=== PATIENT | female | born 1960 | race Caucasian/White ===

== ENCOUNTER → 2017-03-18 | Outpatient (CLI) | payer BC ==
[~2017-03-18] MED LIST: ASCO10003 PO; CHOL1000 PO; MULT-506 PO; VITAMIN D3 PO; [UNRECOGNIZED DRUG - OTHER] PO
--- NOTE | 2017-03-18 13:09 | MAMMOGRAPHY REPORT ---
BILATERAL DIGITAL SCREENING MAMMOGRAM TOMOSYNTHESIS WITH CAD: 03/18/2017 CLINICAL HISTORY: Routine screening. TECHNIQUE: Breast tomosynthesis in addition to standard 2D mammography was performed. Current study was also evaluated with a Computer Aided Detection (CAD) system. COMPARISON: Comparison is made to exams dated: 03/14/2016 mammogram, 03/10/2015 mammogram, 03/25/2014 m ammogram, 09/14/2013 mammogram, 09/09/2013 mammogram, and 08/01/2012 mammogram - [facility] nter. BREAST COMPOSITION: There are scattered areas of fibroglandular density in both breasts. FINDINGS: Decreasing size of a benign partially rim calcified mass in the right upper outer quadrant. Stable metallic biopsy marker in the right breast. A few other scattered stable benign-appearing c alcifications bilaterally. No suspicious mass, architectural distortion or cluster of suspicious jennifer rocalcifications is seen. IMPRESSION: ACR BI-RADS CATEGORY 1: NEGATIVE There is no mammographic evidence of malignancy. A 1 year screening mammogram is recommended. The pa tient will receive written notification of the results. Approximately 10% of breast cancers are not detected with mammography. A negative mammographic report should not delay biopsy if a clinically suggestive mass is present. Mare Alan M.D. ay/:03/18/2017 08:06:52 Paint Prep Technician: Ludmila COBB(Kathryn)(M), [facility] letter sent: Normal 1/2 BI-RADS Code: ACR BI-RADS Category 1: Negative
== END | disposition home or self-care (01) ==
LOC: C.MAMM 07:13
PROVIDERS: ATTEND Family Medicine
DX: Z12.31 Encounter for screening mammogram for malignant neoplasm of breast (principal)

== ENCOUNTER 2017-04-06 10:55 | Emergency (ER) | payer BC ==
[~2017-04-06] VITALS: Ht 160 cm; Wt 71.3 kg
[~2017-04-06 10:55] MED LIST changes: -CHOL1000 PO
[2017-04-06 11:05] VITALS: TEMP 36.9; Ht 160 cm; Wt 71.3 kg
[2017-04-06] MEDS ORDERED: CHOL1000 PO (11:40)
--- NOTE | 2017-04-06 11:46 | DIAGNOSTIC IMAGING REPORT ---
L FINGER(S) MIN 2 VIEWS ROUTINE HISTORY: 57 years-old Female FALL acute left fifth digit pain status post fall COMPARISON: None available TECHNIQUE: 3 views of the fingers with attention to the left fifth digit FINDINGS: There is an acute subluxation of the fifth proximal interphalangeal joint with the middle phalanx displaced 3 mm ulnarly and positioned with 70 degrees apex radial angulation.There is 3 mm volar subluxation. Moderate associated soft tissue swelling without definite fracture. Moderate interphalangeal degenerative changes are seen throughout. Background osteopenia. Lucency overlying the proximal shaft of the fourth metacarpal is favored to be artifact. IMPRESSION: Acute angulated and subluxation of the fifth proximal phalangeal joint as above without definite fracture identified. Follow-up radiographs following reduction recommended. The above report was generated using voice recognition software. It may contain grammatical, syntax or spelling errors. Electronically signed by: Jefferson Llamas M.D. 04/06/2017 11:45 AM Dictated Date/Time: 04/06/2017 11:42 AM
[2017-04-06] MEDS ORDERED: XYLOCAINE 1%/SOD BICARB 20 ML VIAL INFIL ONE (12:00)
--- NOTE | 2017-04-06 12:39 | DIAGNOSTIC IMAGING REPORT ---
L FINGER(S) MIN 2 VIEWS ROUTINE HISTORY: 57 years-old Female post reduction L little finger status post reduction of left fifth digit subluxation COMPARISON: Left finger radiographs of same day at 11:35 AM TECHNIQUE: 3 views of the left fifth digit FINDINGS: There is been interval reduction of the previous described angulated subluxation involving the fifth PIP joint. There is improved alignment with out associated fracture identified. Moderate soft tissue swelling is noted about the fifth digit. Moderate interphalangeal degenerative changes redemonstrated with mild background osteopenia. IMPRESSION: Status post reduction of the fifth PIP joint with anatomic alignment. No fracture identified. The above report was generated using voice recognition software. It may contain grammatical, syntax or spelling errors. Electronically signed by: Jefferson Llamas M.D. 04/06/2017 12:37 PM Dictated Date/Time: 04/06/2017 12:36 PM
[2017-04-06 13:03] VITALS: BP 125/80; PULSE 87; O2SAT 100
--- NOTE | 2017-04-06 17:36 | EMERGENCY ROOM VISIT NOTE ---
ED Visit Note First contact with patient: 11:24 CHIEF COMPLAINT: Left little Finger pain and deformity HISTORY OF PRESENT ILLNESS: This 57-year-old white female patient injured the left little finger today when she tripped on the stairs and caught her left hand on the bottom of the hand rail. She Has been unable to move it at the PIP joint since and there is moderate and constant pain. No numbness or tingling. no other fingers are involved. No recent history of finger dislocation. Pain is 6/10. No treatment yet. REVIEW OF SYSTEMS: Head: No headache, injury or neck pain. Neck: No pain, stiffness, or swelling. Cardiac: No chest pain, diaphoresis, dyspnea on exertion, orthopnea, pedal edema, or palpitations. Skin: No rash, new lesions , or masses. General: No fever or chills, fatigue, loss of appetite, or significant recent weight gain or loss. PMH: Benign Previous Surgeries: Dewey tooth extraction Medications: Vitamins Allergies: Erythromycin Family History: Significant for dementia. Mother is . SOCIAL HISTORY: Patient living at home alone. Employed. No tobacco use, occasional EtOH use. PHYSICAL EXAM: Vital Signs: Afebrile. Reviewed and filed in patient's chart General: Well-developed, well-nourished, middle-aged white female, in no acute distress. Sitting on a bed. Alert and oriented. Obvious discomfort. Skin: Warm and dry with good turgor. No rashes. Small abrasion present over the dorsum of her little finger. No laceration. Mild edema has developed at the proximal phalanx. No ecchymosis. Musculoskeletal: There is an obvious deformity at the PIP joint of the little finger with dorsal dislocation of the middle phalanx. Neurologic: The distal dislocated portion of the finger is pale but is sensate. Capillary refill is normal. EMERGENCY DEPARTMENT COURSE: An X-ray of the finger shows a complete dorsal dislocation at the PIP joint. No fractures are seen. Patient elected to have local anesthesia. Digital block was performed using 4ml 1% buffered Lidocaine. The joint was reduced by applying a steady axial distraction of the dislocated portion at the PIP joint with hyperextention. Following this motion of the joint was reduced and the patient could move it normally. FDS and FDP function were checked individually and found to be intact. She has full extension. Vascular status was checked and found to be equal to the other digits. Post- reduction X-ray shows reduction of the joint without fracture. DIAGNOSIS: Left little finger PIP joint dislocation DISCHARGE INSTRUCTIONS & TREATMENT: Patient was educated regarding today's findings. Conservative care measures were discussed. Keep the finger noe taped to the next finger for about 3 weeks. Ice and elevation for 72 hours. Ibuprofen 600 mg and Tylenol 1 gm every 6 hours as needed for pain. Gentle motion daily. Motion was checked several times to be sure that it would not re- dislocate. It was stable. Importance of gentle motion every day was discussed. She should be out of the noe tape for showering. Finger dislocation handout was provided. Return to the ED for any other concerns. Current/Historical Medications Scheduled Ascorbic Acid (Vitamin C), 1 TAB PO QAM Cholecalciferol (Vitamin D3), 5,000 UNITS PO DAILY Multivitamin (Multivitamin), 1 TAB PO QAM Allergies Coded Allergies: Erythromycin (Verified Allergy, Unknown, UNKNOWN, 04/06/17) Vital Signs Date Time Temp Pulse Resp B/P (MAP) Pulse Ox O2 Delivery O2 Flow Rate FiO2 04/06/17 13:03 87 18 125/80 100 04/06/17 13:00 87 18 125/80 100 Room Air 04/06/17 11:05 36.9 105 18 142/85 96 Room Air Departure Information Impression Primary Impression: Dislocation of left little finger Dispostion Home / Self-Care Condition GOOD Forms WORK / SCHOOL INSTRUCTIONS, HOME CARE DOCUMENTATION FORM, MOTRIN USE, TYLENOL USE, IMPORTANT VISIT INFORMATION Patient Instructions [facility], ED Dislocation Finger Redu Additional Instructions Keep the fingers noe taped at all times other than bathing for the next 4 weeks Gentle motion daily Ice and elevate intermittently as needed for pain/swelling Tylenol and Motrin every 6 hours as needed for discomfort Follow-up with orthopedics if pain is persisting Return to the ED for any acute changes
== END 2017-04-06 13:04 | disposition home or self-care (01) ==
LOC: C.EDB 10:57 → C.EDD 13:04
DX: S63.287A Dislocation of proximal interphalangeal joint of left little finger, initial encounter (principal); W18.40XA Slipping, tripping and stumbling without falling, unspecified, initial encounter; S60.417A Abrasion of left little finger, initial encounter; Z81.8 Family history of other mental and behavioral disorders

== ENCOUNTER 2020-01-16 08:58 | Inpatient (IN) ==
[2020-01-16] MEDS ORDERED: VANCOMYCIN HCL 1,250 MG in SODIUM CHLORIDE 0.9% 500 ML IV ONE (09:38)
[2020-01-16] MEDS ORDERED: PIPERACILL/TAZOBAC CONSULT ACTIVE PRN ×2 (09:38→17:04)
[2020-01-16] MEDS ORDERED: VANCOMYCIN CONSULT ACTIVE PRN ×2 (09:38→17:04)
[2020-01-16] MEDS ORDERED: SODIUM CHLORIDE 0.9% 1000ML 1,000 ML IV ONE (09:38)
[2020-01-16] MEDS ORDERED: PIPERACILLIN/TAZOBACTAM 4.5 GM/120 ML BAG IV ONE (09:38)
[2020-01-16] MEDS ORDERED: ALBUT/IPRATROP 3MG/0.5MG NEB 3 ML VIAL NEB STA (09:40)
[2020-01-16] MEDS ORDERED: DEXAMETHASONE **PF** INJ 10 MG/ML VIAL IV ONE (09:40)
[2020-01-16] MEDS ORDERED: guaiFENesin 600 MG TABCR PO STA (09:40)
[2020-01-16 10:00] LABS: Basophils # (auto) 0.02 K/uL (0-0.2); Basophils % (auto) 0.3 %; Eosinophils # (auto) 0.03 K/uL (0-0.5); Eosinophils % (auto) 0.4 %; Hematocrit (blood only) 30.4 % (37-47); Hemoglobin 10.2 g/dL (12.0-16.0); Immature Granulocytes # (auto) 0.02 K/uL (0.00-0.02); Immature Granulocytes % (auto) 0.3 %; Lymphocytes # (auto) 0.73 K/uL (1.2-3.4); Lymphocytes % (auto) 9.4 %; Mean Corpuscular Hgb Conc 33.6 g/dL (32-36); Mean Corpuscular Volume 98.4 fL (80-100); Mean Platelet Volume 8.9 fL (7.4-10.4); Monocytes # (auto) 0.75 K/uL (0.11-0.59); Monocytes % (auto) 9.7 %; Neutrophils # (auto) 6.22 K/uL (1.4-6.5); Neutrophils % (auto) 79.9 %; Platelet Count 308 K/uL (130-400); RDW Coefficient of Variation 13.2 % (11.5-14.5); RDW Standard Deviation 47.4 fL (36.4-46.3); Red Blood Count 3.09 M/uL (4.2-5.4); White Blood Count 7.77 K/uL (4.8-10.8)
--- NOTE | 2020-01-16 10:05 | XRay Report ---
XR chest 1V portable CLINICAL HISTORY: Sepsis. COMPARISON STUDY: Chest radiograph August 03, 2019. FINDINGS: Right internal jugular [id number]-Ozmn is in place. No pneumothorax or pleural effusion is no ez. There are mild bibasilar opacities. Cardiac size is normal. There is no evidence for pulmonary e karin. IMPRESSION: Mild bibasilar opacities which may reflect an infectious etiology or atelectasis. ACT 112: Negative or not required by law. Electronically signed by: Emigdio Llanos M.D. 01/16/2020 10:04 AM
[2020-01-16 10:09] LABS: Partial Thromboplastin Time 28.8 Seconds (21.0-31.0); Prothrombin Time 10.9 Seconds (9.0-12.0)
[2020-01-16 10:18] LABS: Alanine Aminotransferase 17 U/L (12-78); Albumin Level 3.2 gm/dl (3.4-5.0); Aspartate Aminotransferase 12 U/L (15-37); BUN Creatinine Ratio 19.9 (10-20); Bilirubin Direct < 0.1 mg/dl (0-0.2); Blood Urea Nitrogen 17 mg/dl (7-18); Calcium 9.1 mg/dl (8.5-10.1); Carbon Dioxide 24 mmol/L (21-32); Chloride 108 mmol/L (98-107); Creatinine Clr Calc Pharmacy 59.9 ml/min; Est GFR (African American) 84.5; Est GFR (Non-African American) 72.9; Glucose 126 mg/dl (70-99); Lipase 95 U/L (73-393); Magnesium 1.7 mg/dl (1.8-2.4); Potassium 3.8 mmol/L (3.5-5.1); Sodium 138 mmol/L (136-145)
[2020-01-16 10:27] LABS: Albumin Globulin Ratio 0.9 (0.9-2); Alkaline Phosphatase 79 U/L (45-117); Bilirubin,Total 0.3 mg/dl (0.2-1); Globulin 3.7 gm/dl (2.5-4.0); Total Protein 6.9 gm/dl (6.4-8.2); Troponin I 0.372 ng/ml (0-0.045)
[2020-01-16] MEDS ORDERED: OPTIRAY 320 125ml IV PRN (10:46)
[2020-01-16 11:33] LABS: Appearance Urine Clear (Clear); Bilirubin Urine Negative (Negative); Blood Urine Negative (Negative); Color Urine Yellow; Glucose Urine UA Negative (Negative); Ketones Urine Negative (Negative); Leukocyte Esterase Urine Negative (Negative); Nitrite Urine Negative (Negative); Protein Urine Negative (Negative); Urobilinogen Urine Negative (Negative); pH Urine 6.5 (4.5-7.5)
--- NOTE | 2020-01-16 12:17 | CT Scan Report ---
CT ANGIOGRAPHY OF THE CHEST, PULMONARY EMBOLUS PROTOCOL CLINICAL HISTORY: Chest pain. Evaluate for pulmonary embolus. COMPARISON STUDY: Chest CT May 04, 2019. Chest radiograph performed earlier today. TECHNIQUE: Following IV administration of 118 mL of Optiray-320, helical axial images of the chest we re obtained utilizing the pulmonary embolus protocol. Maximal intensity projections and sagittal and coronal reformats were viewed on an independent 3D workstation. IV contrast was administered withou t complication. Automated exposure control was utilized for the study. A dose lowering technique wa s utilized adhering to the principles of ALARA. CT DOSE: 238.11 mGy.cm FINDINGS: No pulmonary emboli are identified. There is no thoracic aortic dissection. The size of th e heart is normal. A right-sided Aoehpl-m-Sini is in place. The central airways are patent. There is no thoracic lymphadenopathy. There is no consolidation. There are are mild groundglass opacities with mosaic attenuation within the lungs. No pneumothorax or pleural effusion is noted. Bony thorax and u pper abdomen are unremarkable. IMPRESSION: 1. No pulmonary emboli identified. 2. No thoracic aortic dissection. 3. Mild groundglass opacities with mosaic attenuation within the lungs. The findings could reflect at electasis or air-trapping. Pulmonary edema could appear similar although is considered less likely. N o consolidation. ACT 112: Negative or not required by law. Electronically signed by: Emigdio Llanos M.D. 01/16/2020 12:16 PM
--- NOTE | 2020-01-16 12:49 | Emergency Department Note ---
Impression & Plan Sepsis, Hypomagnesemia, Hypophosphatemia, Elevated troponin, B-cell lymphoma ED Provider Note NAME: WENDY GALEAS AGE: 59 SEX: F ARRIVES VIA: Walk-In INFORMANT: [Patient], ED PROVIDER(S): Michael Moreno MD CHIEF COMPLAINT: Fever, cough, shortness of breath. PLAN: Disposition: Admit MEDICAL DECISION MAKING: The patient is a pleasant 59-year-old woman with a past medical history of B- cell lymphoma who presents emergency department with cough and shortness of breath that has been worsening in the setting of having mild residual symptoms over the past month which were thought to be related to her chemotherapy with her last treatment at the beginning of November with subsequent plan for continued maintenance therapy. She reports semi-productive cough and sob. Denies chest pain, vomiting, diarrhea, urinary sx. Denies known contact with individuals diagnosed with Covid19. She follows with [facility], Dr. Bhatt. On arrival the patient has a temperature of 37.9 with heart rate in the 140s and vital signs otherwise stable. She has scant intermittent wheezes but is otherwise clear. WBC, platelets within normal limits. H/H 10.2/30.0 similar to prior injury values. Chemistry without acidosis. Magnesium 1.7 with phosphorus 2.0 with repletion provided. LFTs unremarkable. Patient's troponin is elevated at 0.372.prior similar elevations in the record. UA negative for infection. Patient was treated with empiric antibiotics given immunocompromise on and on chemotherapy. CTA was negative for PE or focal infiltrates though with mild groundglass opacities within the lungs. Patient was reevaluated and she was fe eling improved after IV fluid hydration, dexamethasone, duoneb, and antibiotics. She was agreeable with plan for admission after making arrangements to take care of her elderly father. Case was discussed with Adelia Tello, [facility], who evaluate the patient for admission. Triage Nursing notes reviewed and agree them. Prior medical records reviewed Vital Signs: reviewed and remarkable for tachycardia. Differential diagnosis: Sepsis, UTI, pneumonia, metabolic, electrolyte abnormalities, cardiac sources, intracerebral event, toxicologic, neurologic, as well as other pathologies. ER treatment provided: See below. Diagnostics interpreted by me: ECG: Sinus tachycardia, 141 bpm, normal axis, no ectopy, no overt ST elevation or depression, QTC 459, QRS 74. Cardiac Monitoring: An order for continuous cardiac monitoring was placed and demonstrated sinus tachycardia, 141 bpm, no ectopy, Laboratory studies: See below Imaging studies: XR chest 1V portable CLINICAL HISTORY: Sepsis. COMPARISON STUDY: Chest radiograph August 03, 2019. FINDINGS: Right internal jugular Qhaiag-l-Eooi is in place. No pneumothorax or pleural effusion is noted. There are mild bibasilar opacities. Cardiac size is normal. There is no evidence for pulmonary edema. IMPRESSION: Mild bibasilar opacities which may reflect an infectious etiology or atelectasis. -- CT ANGIOGRAPHY OF THE CHEST, PULMONARY EMBOLUS PROTOCOL CLINICAL HISTORY: Chest pain. Evaluate for pulmonary embolus. COMPARISON STUDY: Chest CT May 04, 2019. Chest radiograph performed earlier today. TECHNIQUE: Following IV administration of 118 mL of Optiray-320, helical axial images of the chest were obtained utilizing the pulmonary embolus protocol. Maximal intensity projections and sagittal and coronal reformats were viewed on an independent 3D workstation. IV contrast was administered without compl ication. Automated exposure control was utilized for the study. A dose lowering technique was utilized adhering to the principles of ALARA. CT DOSE: 238.11 mGy.cm FINDINGS: No pulmonary emboli are identified. There is no thoracic aortic dissection. The size of the heart is normal. A right-sided Ucegfg-w-Novu is in place. The central airways are patent. There is no thoracic lymphadenopathy. There is no consolidation. There are are mild groundglass opacities with mosaic attenuation within the lungs. No pneumothorax or pleural effusion is noted. Bony thorax and upper abdomen are unremarkable. IMPRESSION: 1. No pulmonary emboli identified. 2. No thoracic aortic dissection. 3. Mild groundglass opacities with mosaic attenuation within the lungs. The findings could reflect atelectasis or air-trapping. Pulmonary edema could appear similar although is considered less likely. No consolidation. Consultation(s): [facility]. HPI: The patient is a pleasant 59-year-old woman with a past medical history of B-cell lymphoma who presents emergency department with cough and shortness of breath that has been worsening in the setting of having mild residual symptoms over the past month which were thought to be related to her chemotherapy with her last treatment at the beginning of November with subsequent plan for continued maintenance therapy. She reports semi-productive cough and sob. Denies chest pain, vomiting, diarrhea, urinary sx. Denies known contact with individuals diagnosed with Covid19. She follows with [facility] oncology, Dr. Bhatt. ROS: See above HPI for pertinent positives & negatives. A total of 10 systems reviewed and were otherwise negative. PAST MEDICAL HISTORY:See Below PAST SURGICAL HISTORY:See Below FAMILY HISTORY:See Below SOCIAL HISTORY:See Below HOME MEDICATIONS:See Below ALLERGIES:See Below VITALS:See Below PHYSICAL EXAMINATION: GENERAL: Awake, alert, acute on chronically ill-appearing, in no distress HENT: Normocephalic, atraumatic. Oropharynx with dry mucous membranes and otherwise unremarkable. EYES: Normal conjunctiva. Sclera non-icteric. NECK: Supple. No nuchal rigidity. FROM. No JVD. RESPIRATORY: Scant intermittent wheezes and otherwise clear to auscultation. CARDIAC: Tachycardic rate, normal rhythm. Extremities warm and well perfused. Pulses equal. ABDOMEN: Soft, non-distended. No tenderness to palpation. No rebound or guarding. No masses. RECTAL: Deferred. MUSCULOSKELETAL: Chest examination reveals no tenderness. The back is symmetrical on inspection without obvious abnormality. There is no CVA tenderness to palpation. No joint edema. LOWER EXTREMITIES: Calves are equal size bilaterally and non-tender. No edema. No discoloration. NEURO: Normal sensorium. No sensory or motor deficits noted. SKIN: No rash or jaundice noted. ED COURSE: Critical Care: I have personally spent greater than 45 minutes of critical care time in the direct management of this patient. This includes bedside care, interpretation of diagnostic studies, and testing, discussion with consultants, patient, and family members, and other required patient management activities. This 45 minutes is in excess of all separately billable procedures. 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 Other Information That Helps Us Care for You: No Feels Safe at Home: Yes Safety Concerns: Feels Safe At This Time Smoking Status: Never smoker Second Hand Exposure: Yes ( A CHILD) ; Hx Alcohol Use: No Hx Substance Use: No Allergies Allergies Allergy/AdvReac Type Severity Reaction Status Date / Time latex Allergy Unknown pruritus Verified 01/16/20 09:54 (with prolonged exposure) erythromycin base AdvReac Unknown nausea Verified 01/16/20 09:54 Home Meds Home Medications Medication Instructions Recorded Confirmed lorazepam 0.5 mg PO HS PRN 05/21/19 01/16/20 acyclovir 400 mg PO BID 09/26/19 01/16/20 omeprazole 20 mg PO QAM 09/26/19 01/16/20 ondansetron HCl 8 mg PO Q8H PRN 09/26/19 01/16/20 prochlorperazine maleate 10 mg PO Q6H PRN 09/26/19 01/16/20 Results & Data (ED) Vital Signs Vital Signs - 24 hr 01/16/20 09:03 01/16/20 10:35 01/16/20 11:02 Temperature 37.9 C H Temperature Source Oral Pulse Rate 152 H Pulse Rate [Right] 129 H 123 H Pulse Rhythm [Right] Regular Pulse Strength [Right] Normal Respiratory Rate 20 20 18 Respiratory Effort / Characteristics Non-Labored Non-Labored Spontaneous Non-Labored Spontaneous Respiratory Depth Normal Normal Respiratory Pattern Regular Blood Pressure 125/75 Blood Pressure [Left Arm] 139/77 Blood Pressure Mean 91 Blood Pressure Mean [Left Arm] 97 Blood Pressure Position [Left Arm] Lying Pulse Oximetry 96 95 96 Oxygen Delivery Method Room Air Room Air Room Air Sepsis Recent Fever Within 48 Hours Yes Sepsis New/Unexplained Change in Mental Status N/A Sepsis Action Taken by Nursing No Action Required 01/16/20 11:37 01/16/20 12:59 Temperature Temperature Source Pulse Rate Pulse Rate [Right] 126 H 118 H Pulse Rhythm [Right] Regular Regular Pulse Strength [Right] Normal Normal Respiratory Rate 16 18 Respiratory Effort / Characteristics Non-Labored Spontaneous Non-Labored Spontaneous Respiratory Depth Normal Normal Respiratory Pattern Regular Blood Pressure Blood Pressure [Left Arm] 129/76 132/80 Blood Pressure Mean Blood Pressure Mean [Left Arm] 93 97 Blood Pressure Position [Left Arm] Lying Lying Pulse Oximetry 97 98 Oxygen Delivery Method Room Air Room Air Sepsis Recent Fever Within 48 Hours Sepsis New/Unexplained Change in Mental Status Sepsis Action Taken by Nursing Laboratory Data Attestation: I reviewed the patient's lab results. Result diagrams: 01/16/20 09:48 01/16/20 09:48 Lab Results 01/16/20 01/16/20 01/16/20 Range/Units 09:48 09:48 09:48 WBC 7.77 (4.8-10.8) K/uL RBC 3.09 L (4.2-5.4) M/uL Hgb 10.2 L (12.0-16.0) g/dL Hct 30.4 L (37-47) % MCV 98.4 (80-100) fL MCH 33.0 (25-34) pg MCHC 33.6 (32-36) g/dL RDW Std Deviation 47.4 H (36.4-46.3) fL RDW Coeff of Maria T 13.2 (11.5-14.5) % Plt Count 308 (130-400) K/uL MPV 8.9 (7.4-10.4) fL Immature Gran % (Auto) 0.3 % Neut % (Auto) 79.9 % Lymph % (Auto) 9.4 % [place] % (Auto) 9.7 % Eos % (Auto) 0.4 % Baso % (Auto) 0.3 % Neut # (Auto) 6.22 (1.4-6.5) K/uL Lymph # (Auto) 0.73 L (1.2-3.4) K/uL [place] # (Auto) 0.75 H (0.11-0.59) K/uL Eos # (Auto) 0.03 (0-0.5) K/uL Baso # (Auto) 0.02 (0-0.2) K/uL Immature Gran # (Auto) 0.02 (0.00-0.02) K/uL PT 10.9 (9.0-12.0) Seconds INR 1.0 (0.9-1.1) APTT 28.8 (21.0-31.0) Seconds PTT Ratio 1.0 Sodium 138 (136-145) mmol/L Potassium 3.8 (3.5-5.1) mmol/L Chloride 108 H (98-107) mmol/L Carbon Dioxide 24 (21-32) mmol/L Anion Gap 6.0 (3-11) BUN 17 (7-18) mg/dl Creatinine 0.86 (0.6-1.2) mg/dl Est Cr Clr Drug Dosing 59.9 ml/min Est GFR ( Amer) 84.5 Est GFR (Non-Af Amer) 72.9 BUN/Creatinine Ratio 19.9 (10-20) Glucose 126 H (70-99) mg/dl Lactate (0.4-2.0) mmol/L Calcium 9.1 (8.5-10.1) mg/dl Phosphorus 2.0 L (2.5-4.9) mg/dl Magnesium 1.7 L (1.8-2.4) mg/dl Total Bilirubin 0.3 (0.2-1) mg/dl Direct Bilirubin < 0.1 (0-0.2) mg/dl AST 12 L (15-37) U/L ALT 17 (12-78) U/L Alkaline Phosphatase 79 (45-117) U/L Troponin I 0.372 H* (0-0.045) ng/ml NT-Pro-B Natriuret Pep (0-900) pg/ml Total Protein 6.9 (6.4-8.2) gm/dl Albumin 3.2 L (3.4-5.0) gm/dl Globulin 3.7 (2.5-4.0) gm/dl Albumin/Globulin Ratio 0.9 (0.9-2) Lipase 95 (73-393) U/L Procalcitonin (0-0.5) ng/ml Urine Color Urine Appearance (Clear) Urine pH (4.5-7.5) Ur Specific [place] (1.000-1.030) Urine Protein (Negative) Urine Glucose (UA) (Negative) Urine Ketones (Negative) Urine Blood (Negative) Urine Nitrite (Negative) Urine Bilirubin (Negative) Urine Urobilinogen (Negative) Ur Leukocyte Esterase (Negative) 01/16/20 01/16/20 01/16/20 Range/Units 09:48 09:48 09:48 WBC (4.8-10.8) K/uL RBC (4.2-5.4) M/uL Hgb (12.0-16.0) g/dL Hct (37-47) % MCV (80-100) fL MCH (25-34) pg MCHC (32-36) g/dL RDW Std Deviation (36.4-46.3) fL RDW Coeff of Maria T (11.5-14.5) % Plt Count (130-400) K/uL MPV (7.4-10.4) fL Immature Gran % (Auto) % Neut % (Auto) % Lymph % (Auto) % [place] % (Auto) % Eos % (Auto) % Baso % (Auto) % Neut # (Auto) (1.4-6.5) K/uL Lymph # (Auto) (1.2-3.4) K/uL [place] # (Auto) (0.11-0.59) K/uL Eos # (Auto) (0-0.5) K/uL Baso # (Auto) (0-0.2) K/uL Immature Gran # (Auto) (0.00-0.02) K/uL PT (9.0-12.0) Seconds INR (0.9-1.1) APTT (21.0-31.0) Seconds PTT Ratio Sodium (136-145) mmol/L Potassium (3.5-5.1) mmol/L Chloride (98-107) mmol/L Carbon Dioxide (21-32) mmol/L Anion Gap (3-11) BUN (7-18) mg/dl Creatinine (0.6-1.2) mg/dl Est Cr Clr Drug Dosing ml/min Est GFR ( Amer) Est GFR (Non-Af Amer) BUN/Creatinine Ratio (10-20) Glucose (70-99) mg/dl Lactate 1.1 (0.4-2.0) mmol/L Calcium (8.5-10.1) mg/dl Phosphorus (2.5-4.9) mg/dl Magnesium (1.8-2.4) mg/dl Total Bilirubin (0.2-1) mg/dl Direct Bilirubin (0-0.2) mg/dl AST (15-37) U/L ALT (12-78) U/L Alkaline Phosphatase (45-117) U/L Troponin I (0-0.045) ng/ml NT-Pro-B Natriuret Pep 294 (0-900) pg/ml Total Protein (6.4-8.2) gm/dl Albumin (3.4-5.0) gm/dl Globulin (2.5-4.0) gm/dl Albumin/Globulin Ratio (0.9-2) Lipase (73-393) U/L Procalcitonin 0.06 (0-0.5) ng/ml Urine Color Urine Appearance (Clear) Urine pH (4.5-7.5) Ur Specific [place] (1.000-1.030) Urine Protein (Negative) Urine Glucose (UA) (Negative) Urine Ketones (Negative) Urine Blood (Negative) Urine Nitrite (Negative) Urine Bilirubin (Negative) Urine Urobilinogen (Negative) Ur Leukocyte Esterase (Negative) 01/16/20 Range/Units 11:22 WBC (4.8-10.8) K/uL RBC (4.2-5.4) M/uL Hgb (12.0-16.0) g/dL Hct (37-47) % MCV (80-100) fL MCH (25-34) pg MCHC (32-36) g/dL RDW Std Deviation (36.4-46.3) fL RDW Coeff of Maria T (11.5-14.5) % Plt Count (130-400) K/uL MPV (7.4-10.4) fL Immature Gran % (Auto) % Neut % (Auto) % Lymph % (Auto) % [place] % (Auto) % Eos % (Auto) % Baso % (Auto) % Neut # (Auto) (1.4-6.5) K/uL Lymph # (Auto) (1.2-3.4) K/uL [place] # (Auto) (0.11-0.59) K/uL Eos # (Auto) (0-0.5) K/uL Baso # (Auto) (0-0.2) K/uL Immature Gran # (Auto) (0.00-0.02) K/uL PT (9.0-12.0) Seconds INR (0.9-1.1) APTT (21.0-31.0) Seconds PTT Ratio Sodium (136-145) mmol/L Potassium (3.5-5.1) mmol/L Chloride (98-107) mmol/L Carbon Dioxide (21-32) mmol/L Anion Gap (3-11) BUN (7-18) mg/dl Creatinine (0.6-1.2) mg/dl Est Cr Clr Drug Dosing ml/min Est GFR ( Amer) Est GFR (Non-Af Amer) BUN/Creatinine Ratio (10-20) Glucose (70-99) mg/dl Lactate (0.4-2.0) mmol/L Calcium (8.5-10.1) mg/dl Phosphorus (2.5-4.9) mg/dl Magnesium (1.8-2.4) mg/dl Total Bilirubin (0.2-1) mg/dl Direct Bilirubin (0-0.2) mg/dl AST (15-37) U/L ALT (12-78) U/L Alkaline Phosphatase (45-117) U/L Troponin I (0-0.045) ng/ml NT-Pro-B Natriuret Pep (0-900) pg/ml Total Protein (6.4-8.2) gm/dl Albumin (3.4-5.0) gm/dl Globulin (2.5-4.0) gm/dl Albumin/Globulin Ratio (0.9-2) Lipase (73-393) U/L Procalcitonin (0-0.5) ng/ml Urine Color Yellow Urine Appearance Clear (Clear) Urine pH 6.5 (4.5-7.5) Ur Specific [place] 1.010 (1.000-1.030) Urine Protein Negative (Negative) Urine Glucose (UA) Negative (Negative) Urine Ketones Negative (Negative) Urine Blood Negative (Negative) Urine Nitrite Negative (Negative) Urine Bilirubin Negative (Negative) Urine Urobilinogen Negative (Negative) Ur Leukocyte Esterase Negative (Negative) Administered Medications Potassium Chloride/Sodium Chloride (Normal Saline W/20 Meq Kcl) 20 meq in 1,000 mls @ 100 mls/hr IV .Q10H SARAH Stop: 02/15/20 17:03 Last Infusion: 01/16/20 18:09 Dose: 0 mls/hr Documented by: [id number] Admin: 01/16/20 18:08 Dose: 100 mls/hr Documented by: [id number] Levofloxacin/Dextrose (Levaquin/D5w) 750 mg in 150 mls @ 100 mls/hr IV Q24H SARAH Stop: 01/23/20 17:59 Last Infusion: 01/16/20 18:09 Dose: 0 mls/hr Documented by: [id number] Admin: 01/16/20 18:08 Dose: 100 mls/hr Documented by: [id number] Piperacillin Sod/Tazobactam (Sod 3.375 gm/ Dextrose) 115 mls @ 28.75 mls/hr IV Q8H SARAH; Protocol Stop: 01/23/20 17:59 Last Admin: 01/16/20 17:54 Dose: 28.8 mls/hr Documented by: [id number] Sodium Phosphate 15 mmol/ (Sodium Chloride) 255 mls @ 88 mls/hr IV ONE ONE Stop: 01/16/20 20:38 Last Admin: 01/16/20 17:54 Dose: 88 mls/hr Documented by: [id number] Discontinued Medications Albuterol (Duoneb) 3 ml NEB NOW STA Stop: 01/16/20 09:41 Last Admin: 01/16/20 10:33 Dose: 3 ml Documented by: [id number] Dexamethasone Sodium Phosphate (Decadron Pf) 10 mg IV NOW ONE Stop: 01/16/20 09:41 Last Admin: 01/16/20 11:07 Dose: 10 mg Documented by: [id number] Guaifenesin (Mucinex) 600 mg PO NOW STA Stop: 01/16/20 09:41 Last Admin: 01/16/20 11:07 Dose: 600 mg Documented by: [id number] Sodium Chloride (Nss 1000ml) 1,000 mls @ 999 mls/hr IV .Q1H1M ONE Stop: 01/16/20 10:38 Last Infusion: 01/16/20 12:57 Dose: 0 mls/hr Documented by: [id number] Admin: 01/16/20 11:06 Dose: 999 mls/hr Documented by: [id number] Piperacillin Sod/Tazobactam Sod (Zosyn) 4.5 gm in 120 mls @ 240 mls/hr IV NOW ONE Stop: 01/16/20 10:07 Last Infusion: 01/16/20 12:02 Dose: 0 mls/hr Documented by: [id number] Admin: 01/16/20 11:07 Dose: 240 mls/hr Documented by: [id number] Vancomycin HCl 1,250 mg/ (Sodium Chloride) 525 mls @ 200 mls/hr IV NOW ONE Stop: 01/16/20 12:15 Last Infusion: 01/16/20 14:32 Dose: 0 mls/hr Documented by: [id number] Admin: 01/16/20 11:07 Dose: 200 mls/hr Documented by: [id number] Magnesium Sulfate/Dextrose (Magnesium Sulfate / D5w) 1 gm in 100 mls @ 100 mls/ hr IV Q1H SARAH Stop: 01/16/20 15:20 Last Infusion: 01/16/20 17:27 Dose: 0 mls/hr Documented by: [id number] Admin: 01/16/20 17:26 Dose: Not Given Documented by: [id number] Admin: 01/16/20 15:48 Dose: 100 mls/hr Documented by: [id number] Potassium Phosphate 6 mmol/ (Sodium Chloride) 252 mls @ 252 mls/hr IV TODAY@1345 ONE Stop: 01/16/20 14:44 Last Admin: 01/16/20 15:48 Dose: Not Given Documented by: [id number] Ioversol (Optiray 320 125ml) 118 ml IV ONCE PRN PRN Reason: Interaction Checking Stop: 01/20/20 10:45 Last Admin: 01/16/20 10:46 Dose: 118 ml Documented by: [id number] Potassium Phosphate (Potassium Phosphate Replace) 6 mmol IV NOW STA Stop: 01/16/20 13:22 Last Admin: 01/16/20 15:48 Dose: 6 mmol Documented by: [id number] Blood Pressure Blood Pressure Findings: Elevated blood pressure Blood Pressure Disposition: further management by hospitalist Discharge Plan Visit Data *Final* Discharge Date/Time: 01/16/20 15:44 Chief Complaint: Chest Pain Stated Complaint: PAIN IN CHEST AREA ED Provider: Michael Moreno Discharge Problem: Sepsis, Hypomagnesemia, Hypophosphatemia, Elevated troponin, B-cell lymphoma Patient Disposition: Admitted As Inpatient Discharge Instructions Interventions: ED Discharge Assessment Last Done: 01/16/20 15:44 Discharge Problem: Sepsis Qualifiers: Sepsis type: sepsis due to unspecified organism Sepsis acute organ dysfunction status: with acute organ dysfunction Severe sepsis acute organ dysfunction type: unspecified Severe sepsis shock status: without septic shock Qualified Code(s): A41.9 - Sepsis, unspecified organism
[2020-01-16] MEDS ORDERED: POTASSIUM PHOS 3 MMOL/1 ML INFUSION IV STA (13:21)
[2020-01-16] MEDS ORDERED: POTASSIUM PHOSPHATE 6 MMOL in SODIUM CHLORIDE 0.9% 250 ML IV ONE (13:45)
--- NOTE | 2020-01-16 14:51 | History & Physical Report ---
Date of Service January 16, 2020 Assessment & Plan (1) Sepsis: (2) Pneumonia: This is a 59-year-old female who has significant past medical history of grade 3 follicular lymphoma with mediastinal, retroperitoneal and pelvic adenopathy follows Dr. Bhatt status post 6 cycles of R-CHOP completed on 12/15/2019 with prophylactic Neulasta who presents to ED secondary to worsening shortness of breath, cough and fever times several weeks. In ED patient was significantly tachycardic with initial heart rates in the 140s, febrile with temp 37.9 and blood pressure was stable. Lab work notable for WBC 7770, H&H 10.2 and 30.4, platelet 308, lymphopenia, BUN 17, creatinine 0.86, glucose 126, lactate 1.1, phos 2.0, mag 1.7, troponin 0.372, proBNP WNL, procalcitonin 0.06, UA negative. Chest x-ray revealed mild bibasilar opacities which may reflect infectious etiology or atelectasis. CTA chest was negative for PE or thoracic dissection but did reveal mild groundglass opacities with mosaic attenuation in the lungs. She received broad-spectrum IV antibiotics of vancomycin and Zosyn along with IV fluid resuscitation. She further received magnesium and phosphate replacement and IV dexamethasone. Patient does meet sepsis criteria per current CMS guidelines secondary to tachycardia and fever. Likely diagnosis is pneumonia setting of immunocompromise state. admit to PCU Continue IV vancomycin, Zosyn and add Levaquin Repeat COVID-19 testing, initially screened on 12/25/2019 and was negative IV fluid 100 cc/h +20 M EQ KCl Encourage incentive spirometry Nebs PRN MRSA swab Blood cultures pending Sputum culture if able Continue prophylactic acyclovir Low threshold for pulmonology consult (3) Elevated troponin: Troponin elevated at 0.372 No active chest pain, EKG with sinus tachycardia Likely demand ischemia in setting of sinus tachycardia and sepsis Per outpatient records and review of flowsheets and vital signs it does appear patient has been tachycardic through encounter since 07/10/2017 Last echocardiogram 08/04/2019 revealed EF 65% with no acute abnormality Repeat troponin and EKG Obtain echocardiogram (4) Hypomagnesemia: Received magnesium repletion while in ED Repeat mag in a.m. (5) Hypophosphatemia: Neutra-Phos replacement Repeat Phos in a.m. (6) Grade 3 follicular lymphoma of extranodal site excluding spleen and other solid organs: Follows Dr. Bhatt status post 6 cycles of R-CHOP completed on 12/15/2019 Received prophylactic Neulasta (7) DVT prophylaxis: SQ Lovenox Disposition: Admit to telemetry Follow-up: PCP Dr. Pearson upon discharge along with appropriate follow-up with Dr. Bhatt Patient was seen and examined in collaboration with Dr. Izquierdo, please see addendum History of Present Illness Chief Complaint: Worsening SOB, fever and cough x several weeks. Primary Care Provider: Rachel Pearson, DO This is a 59-year-old female who has significant past medical history of grade 3 follicular lymphoma with mediastinal, retroperitoneal and pelvic adenopathy follows Dr. Bhatt status post 6 cycles of R-CHOP completed on 12/15/2019 with prophylactic Neulasta who presents to ED secondary to worsening shortness of breath, cough and fever times several weeks. Of significance about 4 to 5 days after patient received last chemo treatment on 12/15/2019 she began developing low-grade fever and left mastoid area swelling. She tried [id number] Claritin and Tylenol with no relief. She was seen by PCP which show WBC 32,000, ankle 2009, absolute lymphocyte count 120. On 12/21 she started a course of Augmentin and completed for 14 days. On 12/21 she underwent blood culture x2 including from port which revealed no growth to date. On she did undergo COVID-19 screening which was negative. Chest x-ray revealed left basilar atelectasis on 12/20. Symptoms started to improve but cough persisted. Today when woke up she had temp of 101.9 and continued cough. Cough is mostly dry, occasionally productive and clear. She further complains of postnasal drip and generalized weakness. She attributes her generalized weakness to chemotherapy. She further elicits chills and sweats. She denies any lightheadedness, dizziness, headache, change in vision, change in hearing, sinus pain or pressure, sore throat, chest pain, shortness of breath at rest or with exertion, hemoptysis, nausea, vomiting, abdominal pain, change in bowel or urinary habits, melena, hematochezia. Overall appetite has been well. She elicits that her fever has been present until 2 days after starting antibiotic therapy. After finishing antibiotic therapy her fevers had since returned. They are intermittent and improved with Tylenol and max was 102. In ED patient was significantly tachycardic with initial heart rates in the 140s, febrile with temp 37.9 and blood pressure was stable. Lab work notable for WBC 7770, H&H 10.2 and 30.4, platelet 308, lymphopenia, BUN 17, creatinine 0.86, glucose 126, lactate 1.1, phos 2.0, mag 1.7, troponin 0.372, proBNP WNL, procalcitonin 0.06, UA negative. Chest x-ray revealed mild bibasilar opacities which may reflect infectious etiology or atelectasis. CTA chest was negative for PE or thoracic dissection but did reveal mild groundglass opacities with mosaic attenuation in the lungs. She received broad-spectrum IV antibiotics of vancomycin and Zosyn along with IV fluid resuscitation. She further received magnesium and phosphate replacement and IV dexamethasone. Patient does meet sepsis criteria per current CMS guidelines secondary to tachycardia and fever. Likely diagnosis is pneumonia setting of immunocompromise state. Allergies Allergy/AdvReac Type Severity Reaction Status Date / Time latex Allergy Unknown pruritus Verified 01/16/20 09:54 (with prolonged exposure) erythromycin base AdvReac Unknown nausea Verified 01/16/20 09:54 Home Medications Home Medications Medication Instructions Recorded Confirmed Type lorazepam 0.5 mg PO HS PRN 05/21/19 01/16/20 History acyclovir 400 mg PO BID 09/26/19 01/16/20 History omeprazole 20 mg PO QAM 09/26/19 01/16/20 History ondansetron HCl 8 mg PO Q8H PRN 09/26/19 01/16/20 History prochlorperazine maleate 10 mg PO Q6H PRN 09/26/19 01/16/20 History Past Med/Surg History Medical History Anxiety B-cell lymphoma Grade 3 follicular lymphoma of extranodal site excluding spleen and other solid organs Hearing deficit BL BENITES Loose stools diarrhea/loose stools since lymphoma diagnosis, patient feels 2/2 nerves. Osteoarthritis Surgical History History of endoscopy History of gynecological procedure History of left cataract surgery History of lymph node biopsy History of right cataract surgery History of wisdom tooth extraction Nausea and vomiting after administration of anesthetic agent Family History Mother Alzheimer disease vascular dementia Brother Amyloidosis Grandmother (Maternal) Diabetes Social History Preferred Language: Sami Communication Ability: Effective Insurance Verifier Required: Voice Beliefs That Will Affect Care: None Current Living Situation: Family Current Living Situation Comment: LIVING AT HOME W/ DAD. Other Information That Helps Us Care for You: No Feels Safe at Home: Yes Safety Concerns: Feels Safe At This Time Smoking Status: Never smoker Second Hand Exposure: Yes ( A CHILD) ; Hx Alcohol Use: No Hx Substance Use: No Review of Systems Review of Systems: All systems reviewed & are unremarkable except as noted in HPI & below Physical Exam Physical Exam: Constitutional: WD/WN, vitals as above, NAD, sitting up in bed, pleasant, conversing easily Head: Normocephalic, Atraumatic Eyes: PERRL, conjunctivae normal, anicteric sclerae ENMT: external ear and nose normal, oropharynx normal Neck: trachea midline, no thyromegaly normal visual inspection Respiratory: normal respiratory effort, lungs clear to auscultation, no wheeze, rales, rhonchi. Normal insp/exp effort, no accessory muscle use Cardiovascular: Tachycardic rate, regular rhythm, no murmur, no edema Vessels: no JVD or carotid bruit Chest: normal inspection of chest Abdomen: normal bowel sounds, soft, nontender, no hepatosplenomegaly Musculoskeletal: no cyanosis or clubbing, extremities motor strength 5/5 Skin: no rashes, warm and dry normal turgor Neurologic: PERRL, EOMI, accommodation nl, no face palsy, no dysarthria CN's II-XI intact bilaterally and moves all extremities Psychiatric: A+Ox3, euthymic affect Lymphatic: no cervical or axillary lymphadenopathy : deferred Results & Data Results & Data ([facility]) Vital Signs (Past 12 Hours) Vital Signs Temp Pulse Pulse Resp BP BP Pulse Ox 01/16/20 12:59 118 H 18 132/80 98 01/16/20 11:37 126 H 16 129/76 97 01/16/20 11:02 123 H 18 139/77 96 01/16/20 10:35 129 H 20 95 01/16/20 09:03 37.9 C H 152 H 20 125/75 96 Laboratory Results Short CBC 01/16/20 01/16/20 01/16/20 Range/Units 09:48 09:48 09:48 WBC 7.77 (4.8-10.8) K/uL Hgb 10.2 L (12.0-16.0) g/dL Hct 30.4 L (37-47) % Plt Count 308 (130-400) K/uL Lactate 1.1 (0.4-2.0) mmol/L Troponin I 0.372 H* (0-0.045) ng/ml BMP 01/16/20 09:48 Sodium 138 Potassium 3.8 Chloride 108 H Carbon Dioxide 24 BUN 17 Creatinine 0.86 Glucose 126 H Calcium 9.1 Cardiac Enzymes 01/16/20 Range/Units 09:48 Troponin I 0.372 H* (0-0.045) ng/ml Liver Function 01/16/20 Range/Units 09:48 Total Bilirubin 0.3 (0.2-1) mg/dl Direct Bilirubin < 0.1 (0-0.2) mg/dl AST 12 L (15-37) U/L ALT 17 (12-78) U/L Alkaline Phosphatase 79 (45-117) U/L Albumin 3.2 L (3.4-5.0) gm/dl Urine 01/16/20 Range/Units 11:22 Urine Color Yellow Urine Appearance Clear (Clear) Urine pH 6.5 (4.5-7.5) Ur Specific [place] 1.010 (1.000-1.030) Urine Protein Negative (Negative) Urine Glucose (UA) Negative (Negative) Diagnostic Findings CXR: IMPRESSION: Mild bibasilar opacities which may reflect an infectious etiology or atelectasis. CTA Chest: IMPRESSION: 1. No pulmonary emboli identified. 2. No thoracic aortic dissection. 3. Mild groundglass opacities with mosaic attenuation within the lungs. The findings could reflect atelectasis or air-trapping. Pulmonary edema could appear similar although is considered less likely. No consolidation. Medications Administered Ioversol (Optiray 320 125ml) 118 ml IV ONCE PRN PRN Reason: Interaction Checking Stop: 01/20/20 10:45 Last Admin: 01/16/20 10:46 Dose: 118 ml Documented by: [id number] Discontinued Medications Albuterol (Duoneb) 3 ml NEB NOW STA Stop: 01/16/20 09:41 Last Admin: 01/16/20 10:33 Dose: 3 ml Documented by: [id number] Dexamethasone Sodium Phosphate (Decadron Pf) 10 mg IV NOW ONE Stop: 01/16/20 09:41 Last Admin: 01/16/20 11:07 Dose: 10 mg Documented by: [id number] Guaifenesin (Mucinex) 600 mg PO NOW STA Stop: 01/16/20 09:41 Last Admin: 01/16/20 11:07 Dose: 600 mg Documented by: [id number] Sodium Chloride (Nss 1000ml) 1,000 mls @ 999 mls/hr IV .Q1H1M ONE Stop: 01/16/20 10:38 Last Infusion: 01/16/20 12:57 Dose: 0 mls/hr Documented by: [id number] Admin: 01/16/20 11:06 Dose: 999 mls/hr Documented by: [id number] Piperacillin Sod/Tazobactam Sod (Zosyn) 4.5 gm in 120 mls @ 240 mls/hr IV NOW ONE Stop: 01/16/20 10:07 Last Infusion: 01/16/20 12:02 Dose: 0 mls/hr Documented by: [id number] Admin: 01/16/20 11:07 Dose: 240 mls/hr Documented by: [id number] Vancomycin HCl 1,250 mg/ (Sodium Chloride) 525 mls @ 200 mls/hr IV NOW ONE Stop: 01/16/20 12:15 Last Infusion: 01/16/20 14:32 Dose: 0 mls/hr Documented by: [id number] Admin: 01/16/20 11:07 Dose: 200 mls/hr Documented by: [id number] ECG Rate (beats per minute): 141 Rhythm: sinus tachycardia Code Status & VTE Plan Code Status Full Code VTE Prophylaxis Plan VTE Prophylaxis will be ordered: Yes Supervising Physician Co-Signing Physician Notes Patient is a 59-year-old female with history of grade 3 follicular lymphoma with metastasis on chemotherapy, dysplastic nevus, dermatofibroma, hypercalcemia and other medical problems presents with history of worsening shortness of breath, cough, fever since last chemotherapy. Patient failed outpatient p.o. antibiotic therapy. Patient was noted to be tachycardic, febrile. CTA suggestive of mild groundglass opacities with mosaic attenuation within the lungs. COVID screen is negative. Please review HPI for complete details of presentation. On exam patient is moderately built and nourished, normocephalic atraumatic, no apparent distress, lungs are clear to auscultation, S1-S2, tachycardic, no murmur, no pedal edema, abdomen soft, nontender, normal bowel sounds, grossly no focal neurologic deficits. Patient is admitted for management of sepsis secondary to pneumonia. Immunocompromised state. Will start on broad-spectrum antibiotics. Replace magnesium, phosphorus. Cultures obtained. Elevated troponins likely secondary to demand ischemia secondary to tachycardia. Trend cardiac enzymes, check resting echo. Patient denies chest pain. Sinus tachycardia noted on EKG. Patient states having palpitations intermittently. Given symptomatic tachycardia, will start on low-dose metoprolol as it would help with blood pressure as well. I personally reviewed the record. Patient is interviewed and examined at bedside. Patient's care is coordinated with Adelia Fortune PA-C. Please refer to the documentation above for details of patient's presentation and for discussion of other issues.
[2020-01-16] MEDS: MAGNESIUM SULFATE / D5W 1 GM/100 ML BAG IV SCH ×2 (15:48→17:26)
[2020-01-16] MEDS ORDERED: ACETAMINOPHEN 325 MG TAB PO PRN (17:04)
[2020-01-16] MEDS ORDERED: MAGNESIUM HYDROXIDE SUSP 30 ML UDC PO PRN (17:04)
[2020-01-16] MEDS ORDERED: LORazepam 0.5 MG TAB PO PRN (17:04)
[2020-01-16] MEDS ORDERED: ALUMINUM/MAGNESIUM SUSP 30 ML UDC PO PRN (17:04)
[2020-01-16] MEDS ORDERED: ONDANSETRON INJ 2 MG/ML 2 ML VIAL IV PRN (17:04)
[2020-01-16] MEDS ORDERED: ALBUTEROL 0.083% NEBU SOLN 3 ML VIAL NEB PRN (17:04)
[2020-01-16] MEDS ORDERED: POLYETHYLENE (MIRALAX) 17 GM PACK PO PRN (17:04)
[2020-01-16] MEDS ORDERED: SODIUM PHOSPHATE 3 MMOL/1 ML INFUSION IV STA (17:04)
[2020-01-16] MEDS ORDERED: SODIUM PHOSPHATE 15 MMOL in SODIUM CHLORIDE 0.9% 250 ML IV ONE (17:45)
[2020-01-16] MEDS: PIPERACILLIN/TAZOBACTAM 3.375 GM in DEXTROSE 5% 100 ML IV SCH (17:54)
--- NOTE | 2020-01-16 17:58 | Pharmacy Report ---
Pharmacy Abx Initial Consult - Date of Service January 16, 2020 - Pharmacy Dosing Scope Date of Consult: 01/16/20 Consultation requested by: Jess Fortune PA-C Pharmacy is consulted to initiate Vancomycin + Zosyn (also ordered Levaquin) IV dosing therapy, order appropriate labs and adjust drug dose/frequency. - Subjective The patient is a 59 year old F admitted on 01/16/20 13:13. - Objective Height: 5 ft 2 in Weight: 63.4 kg Vital Signs (Past 12hrs): Vital Signs Temp Pulse Pulse Resp BP BP Pulse Ox 01/16/20 17:06 36.8 C 122 H 20 151/88 H 95 01/16/20 14:30 117 H 18 134/77 98 01/16/20 12:59 118 H 18 132/80 98 01/16/20 11:37 126 H 16 129/76 97 01/16/20 11:02 123 H 18 139/77 96 01/16/20 10:35 129 H 20 95 01/16/20 09:03 37.9 C H 152 H 20 125/75 96 Lab Results (24hrs): Laboratory Tests (24 Hours) 01/16/20 01/16/20 01/16/20 09:48 09:48 09:48 WBC 7.77 Neut # (Auto) 6.22 Creatinine 0.86 Est Cr Clr Drug Dosing 59.9 Procalcitonin 0.06 Micro Results: 01/16/20 10:10 Aerobic Blood Culture - Pending Blood Anaerobic Blood Culture - Pending 01/16/20 09:48 Aerobic Blood Culture - Pending Blood Anaerobic Blood Culture - Pending - Risk Factors for Resistance * Immunocompromised (chemotherapy) - Assessment & Plan Assessment 59 year old F initiated on IV Vanco + Zosyn + Levaquin for pneumonia Plan Vancomycin IV * Patient meets criteria for vancomycin AUC dosing nomogram * AUC/MAURO is the preferred PK/PD target for vancomycin * Target AUC/MAURO = 400-600 * AUC guided dosing is effective and associated with decreased risk of nephrotoxicity * Goal trough level for PNA : 15 to 20 mcg/mL * Trough level ordered for 01/18/20 @ 0930 (prior to 4th dose) * Trough level ordered despite AUC dosing since patient received IV contrast 01/16/20 Piperacillin/tazobactam * 4.5 g bolus administered over 30 minutes, then 3.375 g IV extended infusion every 8 hours for CrCl greater than 20 mL/min Levaquin * Ordered 750mg IV Q24hrs - appropriate for crcl > 50 ml/min Pharmacy will continue to follow and will adjust dose/frequency as necessary. Thank you.
[2020-01-16] MEDS: NSS + 20MEQ KCL 20 MEQ/1,000 ML BAG IV SCH (18:08)
[2020-01-16] MEDS: LEVOFLOXACIN/D5W 750 MG/150 ML BAG IV SCH (18:08)
[2020-01-16] MEDS: METOPROLOL TARTRATE 25 MG TAB PO SCH (20:57)
[2020-01-16] MEDS: ENOXAPARIN INJ 40 MG/0.4 ML SYR SQ SCH (20:58)
[2020-01-16] MEDS: ACYCLOVIR 400 MG TAB PO SCH (20:59)
[2020-01-16] MEDS ORDERED: VANCOMYCIN HCL 750 MG in SODIUM CHLORIDE 0.9% 250 ML IV SCH (22:00)
[2020-01-16] MEDS ORDERED: HEPARIN 100 UNIT/ML 5ML FLUSH FLUSH PRN (23:58)
[2020-01-17] MEDS: PIPERACILLIN/TAZOBACTAM 3.375 GM in DEXTROSE 5% 100 ML IV SCH ×3 (02:18→18:18)
[2020-01-17] MEDS: NSS + 20MEQ KCL 20 MEQ/1,000 ML BAG IV SCH ×2 (05:23→14:28)
[2020-01-17] MEDS: METOPROLOL TARTRATE 25 MG TAB PO SCH ×2 (07:52→21:56)
[2020-01-17] MEDS: ACYCLOVIR 400 MG TAB PO SCH ×2 (07:53→21:57)
[2020-01-17] MEDS: PANTOprazole 40 MG TAB PO SCH (07:53)
--- NOTE | 2020-01-17 07:58 | Electrocardiogram Report ---
Test Reason : Blood Pressure : / mmHG Vent. Rate : 141 BPM Atrial Rate : 141 BPM P-R Int : 122 ms QRS Dur : 074 ms QT Int : 300 ms P-R-T Axes : 051 -10 052 degrees QTc Int : 459 ms Sinus tachycardia Otherwise normal ECG No previous ECGs available Confirmed by Viet Riggs ([id number]) on 01/17/2020 7:58:12 AM Referred By: PROTOCOL Confirmed By:Viet Riggs
--- NOTE | 2020-01-17 08:32 | Electrocardiogram Report ---
Test Reason : Blood Pressure : / mmHG Vent. Rate : 104 BPM Atrial Rate : 104 BPM P-R Int : 126 ms QRS Dur : 076 ms QT Int : 370 ms P-R-T Axes : 030 -13 027 degrees QTc Int : 486 ms Sinus tachycardia Otherwise normal ECG When compared with ECG of 16-JAN-2020 09:30, No significant change was found Confirmed by Viet Riggs ([id number]) on 01/17/2020 8:32:17 AM Referred By: Leandro Bhatt Confirmed By:Viet Riggs
[2020-01-17 08:33] LABS: Basophils # (auto) 0.03 K/uL (0-0.2); Eosinophils # (auto) 0.09 K/uL (0-0.5); Eosinophils % (auto) 2.9 %; Hematocrit (blood only) 29.5 % (37-47); Hemoglobin 9.8 g/dL (12.0-16.0); Lymphocytes # (auto) 0.31 K/uL (1.2-3.4); Mean Corpuscular Hemoglobin 32.8 pg (25-34); Mean Corpuscular Hgb Conc 33.2 g/dL (32-36); Mean Corpuscular Volume 98.7 fL (80-100); Mean Platelet Volume 8.9 fL (7.4-10.4); Monocytes % (auto) 22.5 %; Neutrophils # (auto) 1.98 K/uL (1.4-6.5); Neutrophils % (auto) 63.6 %; Platelet Count 257 K/uL (130-400); RDW Coefficient of Variation 13.2 % (11.5-14.5); RDW Standard Deviation 47.9 fL (36.4-46.3); Red Blood Count 2.99 M/uL (4.2-5.4); White Blood Count 3.11 K/uL (4.8-10.8)
[2020-01-17 09:51] LABS: BUN Creatinine Ratio 12.8 (10-20); Creatinine Clr Calc Pharmacy 59.4 ml/min; Est GFR (African American) 83.3; Est GFR (Non-African American) 71.9; Magnesium 2.1 mg/dl (1.8-2.4); Phosphorus 2.3 mg/dl (2.5-4.9); Potassium 3.9 mmol/L (3.5-5.1)
[2020-01-17] MEDS ORDERED: Nursing to Pharmacy Communication SCH (10:45)
[2020-01-17] MEDS ORDERED: LIDOCAINE/EPINEPHRINE 1% 20 ML VIAL INJ ONE (11:00)
--- NOTE | 2020-01-17 13:10 | Operative Report ---
Post Operative Report Pre & Post Diagnosis sepsis, possible infected right port a cath I identified the patient and participated in the time-out.: Yes Procedure removal of port a catheter - right side Surgeon Ching Hdz MD Clay Artist none Estimated Blood Loss 1 Findings Consistent with Post-Op Diagnosis tip of catheter sent for culture Fluids none Specimens tip of catheter Drains none Anesthesia Type Local Complications none Disposition Accompanied Patient To Recovery: No Indications 59 yr old woman undergoing maintenance chemotherapy who was admitted with sepsis. Source believed to be clot at tip of right sided port a cath. Asked to remove port a cath. Consent signed. Description of Procedure Procedure performed at patient's bedside. The right-sided port region was prepped with betadine and draped. The area was anesthetized with 1% lidocaine with epinephrine. 20 cc was used. The previous incision was reopened and the port identified. The stay sutures were removed. The port was dissected free. Pressure was held on subclavian vein for 2 minutes. A portion of the catheter was sent for culture. The wound was irrigated with saline. Hemostasis was noted to be present. The wound was closed with a running subcuticular 4-0 Vicryl suture layer. Steri-Strips and sterile dressings were applied. She tolerated the procedure well. I attest to the content of the Intraoperative Record and any orders documented therein. Any exceptions are noted below.
--- NOTE | 2020-01-17 14:50 | Hospitalist Progress Note ---
Date of Service January 17, 2020 Assessment & Plan (1) Sepsis: SIRS criteria with no clear infection. Cont empiric abx pending blood culture results and clinical improvement. It doesn't appears that pneumonia is present on imaging, however, agree with abx in the setting of blood clot discovery. (2) Pneumonia: DC Vanc as MRSA screen is negative. Pneumonia ruled out. (3) Clotted vascular catheter: Likely etiology of fevers, Removed. Cont empiric abx pending blood culture results. (4) Hypomagnesemia: Repleted. (5) Grade 3 follicular lymphoma of extranodal site excluding spleen and other solid organs: Follows Dr. Bhatt status post 6 cycles of R-CHOP completed on 12/15/2019. Subsequent fever after this. Port removed and further discussion with [facility] regarding the need for a repeat port in the future. Dr. Bhatt made aware of the catheter finding today. (6) DVT prophylaxis: SQ Lovenox Full Code Dispo-home when medically stable. Cont PCU monitoring for now. Shantel Faulkner DO [facility] Hospitalist Admission and Anticipated Discharge Date Admission Date: January 16, 2020 Subjective Echo this morning found to have a distal clot on port catheter As this is a possible cause for her fevers and ?cough, Dr. Hdz removed it Continuing empiric antibiotics pending culture results. Notably recent blood cultures from port 3 weeks ago were negative. Pt denies pain, reports persistent dry cough, otherwise no SOB Review of Systems Review of Systems: All systems reviewed & are unremarkable except as noted in Subjective Physical Exam Physical Exam: CONSTITUTIONAL: WNWD, vitals as above, generally well- appearing EYES: normal conjunctivae, no scleral icterus ENT: external ear and nose normal, oropharynx clear, MMM RESPIRATORY: clear to auscultation bilaterally, no crackles, rales or wheezes, normal respiratory effort CARDIOVASCULAR: regular rate and rhythm, S1 and 2 heard without murmurs, gallops or rubs, no JVD, no peripheral edema GASTROINTESTINAL: normal bowel sounds, soft, nontender, nondistended MUSCULOSKELETAL: strength 5/5 throughout, head is normocephalic and atraumatic SKIN: warm and dry NEUROLOGIC: CN 2-12 grossly intact, normal cognition, normal speech, no gross focal deficits. PSYCHIATRIC: alert cooperative and oriented to person, place and time. Results & Data Results & Data ([facility]) Vital Signs (Past 12 Hours) Vital Signs Temp Pulse Resp BP Pulse Ox 01/17/20 11:47 37.1 C 100 H 20 126/80 92 01/17/20 06:55 37.2 C 102 H 20 134/85 95 01/17/20 04:19 37.3 C 100 H 20 144/79 H 93 Laboratory Results Short CBC 01/17/20 Range/Units 08:18 WBC 3.11 L (4.8-10.8) K/uL Hgb 9.8 L (12.0-16.0) g/dL Hct 29.5 L (37-47) % Plt Count 257 (130-400) K/uL BMP 01/17/20 08:18 Sodium 142 Potassium 3.9 Chloride 113 H Carbon Dioxide 25 BUN 11 Creatinine 0.87 Glucose 96 Calcium 8.0 L Cardiac Enzymes 01/16/20 01/16/20 Range/Units 16:30 21:47 Troponin I 0.490 H* 0.486 H* (0-0.045) ng/ml Medications Administered Current Inpatient Medications Acetaminophen (Tylenol) 650 mg PO Q4H PRN PRN Reason: Pain or Fever Stop: 02/15/20 17:03 Acyclovir (Zovirax) 400 mg PO BID SARAH Stop: 02/15/20 20:59 Last Admin: 01/17/20 07:53 Dose: 400 mg Documented by: Al Hydrox/Mg Hydrox/Simethicone (Maalox) 15 ml PO Q4H PRN PRN Reason: Dyspepsia Stop: 02/15/20 17:03 Albuterol (Ventolin 0.083% 2.5mg/3ml) 2.5 mg NEB Q6R PRN PRN Reason: Shortness Of Breath Or Wheezing Stop: 02/15/20 17:03 Enoxaparin Sodium (Lovenox) 40 mg SQ Q24H SARAH Stop: 02/15/20 20:59 Last Admin: 01/16/20 20:58 Dose: 40 mg Documented by: Heparin Sodium (Porcine) (Heparin Sod 100 Unit/Ml Flush) 5 ml FLUSH PRN PRN PRN Reason: Flush Stop: 02/15/20 23:57 Potassium Chloride/Sodium Chloride (Normal Saline W/20 Meq Kcl) 20 meq in 1,000 mls @ 100 mls/hr IV .Q10H SARAH Stop: 02/15/20 17:03 Last Admin: 01/17/20 14:28 Dose: 100 mls/hr Documented by: Levofloxacin/Dextrose (Levaquin/D5w) 750 mg in 150 mls @ 100 mls/hr IV Q24H SARAH Stop: 01/23/20 17:59 Last Infusion: 01/16/20 20:10 Dose: Infused Documented by: Piperacillin Sod/Tazobactam (Sod 3.375 gm/ Dextrose) 115 mls @ 28.75 mls/hr IV Q8H [facility]; Protocol Stop: 01/23/20 17:59 Last Infusion: 01/17/20 13:55 Dose: Infused Documented by: Lorazepam (Ativan) 0.5 mg PO HS PRN PRN Reason: Anxiety Stop: 02/15/20 17:03 Magnesium Hydroxide (Milk Of Magnesia) 30 ml PO Q12H PRN PRN Reason: Constipation Stop: 02/15/20 17:03 Metoprolol Tartrate (Lopressor) 12.5 mg PO BID [facility] Stop: 02/15/20 19:29 Last Admin: 01/17/20 07:52 Dose: 12.5 mg Documented by: Miscellaneous Information (Consult) 1 ea N/A UD PRN PRN Reason: Consult Stop: 02/15/20 17:03 Ondansetron HCl (Zofran) 4 mg IV Q6H PRN PRN Reason: Nausea Stop: 02/15/20 17:03 Pantoprazole Sodium (Protonix) 40 mg PO QAM [facility]; Protocol Stop: 02/16/20 08:59 Last Admin: 01/17/20 07:53 Dose: 40 mg Documented by: Polyethylene Glycol (Miralax Powder Packet) 17 gm PO DAILY PRN PRN Reason: Constipation Stop: 02/15/20 17:03 (1) Sepsis Sepsis acute organ dysfunction status: with acute organ dysfunction Sepsis type: sepsis due to unspecified organism Severe sepsis acute organ dysfunction type: unspecified Severe sepsis shock status: without septic shock Qualified Code(s): A41.9 - Sepsis, unspecified organism; R65.20 - Severe sepsis without septic shock
[2020-01-17] MEDS: LEVOFLOXACIN/D5W 750 MG/150 ML BAG IV SCH (16:48)
[2020-01-17] MEDS ORDERED: GUAIFENESIN/CODEINE 200MG/20MG 10ML UDC PO PRN (17:06)
[2020-01-17] MEDS: ENOXAPARIN INJ 40 MG/0.4 ML SYR SQ SCH (21:56)
[2020-01-18] MEDS: NSS + 20MEQ KCL 20 MEQ/1,000 ML BAG IV SCH ×2 (01:10→10:39)
[2020-01-18] MEDS: PIPERACILLIN/TAZOBACTAM 3.375 GM in DEXTROSE 5% 100 ML IV SCH ×2 (01:11→09:56)
[2020-01-18 06:36] LABS: Hematocrit (blood only) 31.8 % (37-47); Hemoglobin 10.3 g/dL (12.0-16.0); Mean Corpuscular Hemoglobin 32.1 pg (25-34); Mean Corpuscular Hgb Conc 32.4 g/dL (32-36); Mean Corpuscular Volume 99.1 fL (80-100); Mean Platelet Volume 8.8 fL (7.4-10.4); Platelet Count 273 K/uL (130-400); RDW Coefficient of Variation 13.1 % (11.5-14.5); RDW Standard Deviation 47.8 fL (36.4-46.3); Red Blood Count 3.21 M/uL (4.2-5.4); White Blood Count 1.98 K/uL (4.8-10.8)
[2020-01-18 07:13] LABS: BUN Creatinine Ratio 10.4 (10-20); Calcium 8.3 mg/dl (8.5-10.1); Creatinine Clr Calc Pharmacy 56.4 ml/min; Est GFR (African American) 77.9; Est GFR (Non-African American) 67.2; Potassium 4.2 mmol/L (3.5-5.1)
[2020-01-18] MEDS: ACYCLOVIR 400 MG TAB PO SCH (08:41)
[2020-01-18] MEDS: METOPROLOL TARTRATE 25 MG TAB PO SCH (08:41)
[2020-01-18] MEDS: PANTOprazole 40 MG TAB PO SCH (08:41)
[2020-01-18] MEDS ORDERED: VANCOMYCIN TROUGH ONE (09:30)
--- NOTE | 2020-01-18 10:20 | Discharge Summary ---
Date of Service January 18, 2020 Admission HPI Per Admitting Provider This is a 59-year-old female who has significant past medical history of grade 3 follicular lymphoma with mediastinal, retroperitoneal and pelvic adenopathy follows Dr. Bhatt status post 6 cycles of R-CHOP completed on 12/15/2019 with prophylactic Neulasta who presents to ED secondary to worsening shortness of breath, cough and fever times several weeks. Of significance about 4 to 5 days after patient received last chemo treatment on 12/15/2019 she began developing low-grade fever and left mastoid area swelling. She tried [id number] Claritin and Tylenol with no relief. She was seen by PCP which show WBC 32,000, ankle 2009, absolute lymphocyte count 120. On 12/21 she started a course of Augmentin and completed for 14 days. On 12/21 she underwent blood culture x2 including from port which revealed no growth to date. On she did undergo COVID-19 screening which was negative. Chest x-ray revealed left basilar atelectasis on 12/20. Symptoms started to improve but cough persisted. Today when woke up she had temp of 101.9 and continued cough. Cough is mostly dry, occasionally productive and clear. She further complains of postnasal drip and generalized weakness. She attributes her generalized weakness to chemotherapy. She further elicits chills and sweats. She denies any lightheadedness, dizziness, headache, change in vision, change in hearing, sinus pain or pressure, sore throat, chest pain, shortness of breath at rest or with exertion, hemoptysis, nausea, vomiting, abdominal pain, change in bowel or urinary habits, melena, hematochezia. Overall appetite has been well. She elicits that her fever has been present until 2 days after starting antibiotic therapy. After finishing antibiotic therapy her fevers had since returned. They are intermittent and improved with Tylenol and max was 102. In ED patient was significantly tachycardic with initial heart rates in the 140s, febrile with temp 37.9 and blood pressure was stable. Lab work notable for WBC 7770, H&H 10.2 and 30.4, platelet 308, lymphopenia, BUN 17, creatinine 0.86, glucose 126, lactate 1.1, phos 2.0, mag 1.7, troponin 0.372, proBNP WNL, procalcitonin 0.06, UA negative. Chest x-ray revealed mild bibasilar opacities which may reflect infectious etiology or atelectasis. CTA chest was negative for PE or thoracic dissection but did reveal mild groundglass opacities with mosaic attenuation in the lungs. She received broad-spectrum IV antibiotics of vancomycin and Zosyn along with IV fluid resuscitation. She further received magnesium and phosphate replacement and IV dexamethasone. Patient does meet sepsis criteria per current CMS guidelines secondary to tachycardia and fever. Likely diagnosis is pneumonia setting of immunocompromise state. Admission Exam Per Admitting Provider Constitutional: WD/WN, vitals as above, NAD, sitting up in bed, pleasant, conversing easily Head: Normocephalic, Atraumatic Eyes: PERRL, conjunctivae normal, anicteric sclerae ENMT: external ear and nose normal, oropharynx normal Neck: trachea midline, no thyromegaly normal visual inspection Respiratory: normal respiratory effort, lungs clear to auscultation, no wheeze, rales, rhonchi. Normal insp/exp effort, no accessory muscle use Cardiovascular: Tachycardic rate, regular rhythm, no murmur, no edema Vessels: no JVD or carotid bruit Chest: normal inspection of chest Abdomen: normal bowel sounds, soft, nontender, no hepatosplenomegaly Musculoskeletal: no cyanosis or clubbing, extremities motor strength 5/5 Skin: no rashes, warm and dry normal turgor Neurologic: PERRL, EOMI, accommodation nl, no face palsy, no dysarthria CN's II-XI intact bilaterally and moves all extremities Psychiatric: A+Ox3, euthymic affect Lymphatic: no cervical or axillary lymphadenopathy : deferred Principal Diagnosis Fever secondary to catheter-associated blood clot s/p port removal Stage IIIB Follicular Lymphoma s/p R-CHOP x 6 cycles Discharge Exam CONSTITUTIONAL: WNWD, vitals as above, generally well-appearing EYES: normal conjunctivae, no scleral icterus ENT: external ear and nose normal, oropharynx clear, MMM RESPIRATORY: clear to auscultation bilaterally, no crackles, rales or wheezes, normal respiratory effort CARDIOVASCULAR: regular rate and rhythm, S1 and 2 heard without murmurs, gallops or rubs, no JVD, no peripheral edema GASTROINTESTINAL: normal bowel sounds, soft, nontender, nondistended MUSCULOSKELETAL: strength 5/5 throughout, head is normocephalic and atraumatic SKIN: warm and dry NEUROLOGIC: CN 2-12 grossly intact, normal cognition, normal speech, no gross focal deficits. PSYCHIATRIC: alert cooperative and oriented to person, place and time. Discharge Data Allergies Allergy/AdvReac Type Severity Reaction Status Date / Time latex Allergy Unknown pruritus Verified 01/16/20 09:54 (with prolonged exposure) erythromycin base AdvReac Unknown nausea Verified 01/16/20 09:54 Consultations 01/16/20 12:53 ED Decision to Admit Stat 01/17/20 09:28 Consult General Surgery Routine Ordered Studies 01/16/20 09:43 CT angio chest PE protocol Stat Hospital Course (1) Sepsis: SIRS criteria with no clear infection. Cont empiric abx pending blood culture results and clinical improvement. It doesn't appears that pneumonia is present on imaging, however, continued abx in the setting of catheter clot discovery until it could be removed.. (2) Pneumonia: DC Vanc as MRSA screen is negative. Pneumonia ruled out. (3) Clotted vascular catheter: Likely etiology of fevers, Removed by General Surgery at the bedside. Antibiotics were stopped at time of discharge as she was clinically improved without fevers after removal, had no events on telemetry monitoring, and her blood cultures were clear. Blood cultures will continue to grow x 5 days and this will need to be followed up at the PCP followup in the office. She was educated that she may need another port pending further healthcare plans per Oncology. She will obtain a follow-up with her oncologist soon. (4) Hypomagnesemia: Repleted. (5) Grade 3 follicular lymphoma of extranodal site excluding spleen and other solid organs: Follows Dr. Bhatt status post 6 cycles of R-CHOP completed on 12/15/2019. Subsequent fever after this. Port removed and further discussion with Ocology regarding the need for a repeat port in the future. Dr. Bhatt made aware of the catheter finding and plans for removal. AT time of discharge she was hemodynamically stable and afebrile and tolerating PO. She was mentating and ambulating at baseline and was sent home with close PCP follow-up recommended. Total Time Total Time Spent Total Time Spent (In Minutes): 60 Total Time Includes: Examination of the Patient, Discharge Planning, Medication Reconciliation and Communication With Other Providers Discharge Plan Discharge Items Patient Disposition: Home - Self-Care Reason For Visit: SEPSIS, PNA Discharge Diagnosis: Fever secondary to catheter-associated blood clot s/p port removal Stage IIIB Follicular Lymphoma s/p R-CHOP x 6 cycles Demand ischemia Condition on Discharge: Good Activity: Resume your previous activity Non-emergency contact: Primary Care Provider Call non-emergency contact if: you have any medication questions, your symptoms worsen and you have a fever Follow-up/Referrals: Rachel Pearson DO [Primary Care Provider] - 01/22/20 1:40 pm (APPOINTMENT WITH KAREN TRAN FOR DR PEARSON ON 01/22/2020 AT 1:40PM PLEASE ARRIVE BY 1:25PM) Diet: Regular Addtl Attending Provider Instructions: Please take all medications as instructed on discharge list below. You had a small clot that was attached to the distal tip of your indwelling catheter. The catheter was removed this hospitalization which should hopefully resolved your symptoms of fever, cough and palpitations. If your symptoms persist or worsen, pleae seek immediate medical attention. It is recommended that you follow-up with your primary care physician (PCP) within one week of discharge from the hospital to ensure you are still doing well. You may also want to follow-up with your Oncologist, Dr. Leandro Bhatt. He has been updated of the situation with the catheter, however, you will still need to discuss the need for a future port depending on his treatment plan for you. You blood cultures were negative at the time of discharge from the hospital, which is a preliminary reading. Your PCP will be able to report the final blood culture results to you on follow-up. It was a pleasure taking care of you! Please call if you have any questions or problems. You can reach a [facility] hospitalist on duty at [facility] 24 hours a day by calling [phone]. Take care of yourself. Shantel Faulkner DO [facility] Hospitalist Pending Studies at Discharge: Yes Studies:: blood cultures Stand-Alone Forms: My [facility] [employer], Smoking Cessation Medications and DC Order Prescriptions: New codeine-guaifenesin 10-100 mg/5 mL Liquid 10 ml PO Q6H PRN (Reason: cough) Qty: 120 RF: 0 Continued lorazepam 0.5 mg Tablet 0.5 mg PO HS PRN (Reason: Anxiety) RF: 0 ondansetron HCl 8 mg tablet 8 mg PO Q8H PRN (Reason: Nausea) RF: 0 prochlorperazine maleate 10 mg tablet 10 mg PO Q6H PRN (Reason: Nausea) RF: 0 acyclovir 400 mg tablet 400 mg PO BID RF: 0 omeprazole 20 mg capsule,delayed release(DR/EC) 20 mg PO QAM RF: 0 Discharge Orders: Discharge Order (Routine); Ordered 01/18/20 Ordered By: Shantel Faulkner Admission Data Admit Date/Time: 01/16/20 13:13 Attending Provider: Shantel Faulkner Admit Provider: Bryon Izquierdo Primary Care Provider: Rachel Pearson Other Providers: Bryon Izquierdo ; Ching Hdz Other Interventions: Discharge Summary Assessment (RN) Last Done: 01/18/20 14:51 DC Date/Time DO NOT enter until pt leaves facility: 01/18/20 15:26
--- NOTE | 2020-01-18 12:26 | Surgery Progress Note ---
Date of Service F/U S/P remove infected port, pt is doing fine, no fever, January 18, 2020 Assessment & Plan (1) Sepsis: F/U S/P remove port plan, pt will F/U Dr. Hdz or me in 1-2 weeks, post-op care instruction- keep the dressing for 4 days, she can take a shower on 01/22/2020, Supervising Physician Co-Signing Physician Notes Patient is a 59-year-old female with history of grade 3 follicular lymphoma with metastasis on chemotherapy, dysplastic nevus, dermatofibroma, hypercalcemia and other medical problems presents with history of worsening shortness of breath, cough, fever since last chemotherapy. Patient failed outpatient p.o. antibiotic therapy. Patient was noted to be tachycardic, febrile. CTA suggestive of mild groundglass opacities with mosaic attenuation within the lungs. COVID screen is negative. Please review HPI for complete details of presentation. On exam patient is moderately built and nourished, normocephalic atraumatic, no apparent distress, lungs are clear to auscultation, S1-S2, tachycardic, no murmur, no pedal edema, abdomen soft, nontender, normal bowel sounds, grossly no focal neurologic deficits. Patient is admitted for management of sepsis secondary to pneumonia. Immunocompromised state. Will start on broad-spectrum antibiotics. Replace magnesium, phosphorus. Cultures obtained. Elevated troponins likely secondary to demand ischemia secondary to tachycardia. Trend cardiac enzymes, check resting echo. Patient denies chest pain. Sinus tachycardia noted on EKG. Patient states having palpitations intermittently. Given symptomatic tachycard ia, will start on low-dose metoprolol as it would help with blood pressure as well. I personally reviewed the record. Patient is interviewed and examined at bedside. Patient's care is coordinated with Adelia Fortune PA-C. Please refer to the documentation above for details of patient's presentation and for discussion of other issues. Subjective Echo this morning found to have a distal clot on port catheter As this is a possible cause for her fevers and ?cough, Dr. Hdz removed it Continuing empiric antibiotics pending culture results. Notably recent blood cultures from port 3 weeks ago were negative. Pt denies pain, reports persistent dry cough, otherwise no SOB Physical Exam Constitutional: WD/WN, vitals as above well developed and well nourished Eyes: PERRL, conjunctivae normal, anicteric sclerae Neck: trachea midline, no thyromegaly Respiratory: normal respiratory effort, lungs clear to auscultation Cardiovascular: RRR, no murmur, no edema Rate/Rhythm: regular rate and regular rhythm Gastrointestinal (Abdomen): normal bowel sounds, soft, nontender, no hepatosplenomegaly Skin: no rashes, warm and dry the incision site intact, no redness, no drainage Neurologic: awake Psychiatric: Orientation: alert and oriented x 3 Results & Data Vital Signs (Past 12 Hours) Vital Signs Temp Pulse Pulse Resp BP Pulse Ox 01/18/20 11:48 37.1 C 97 H 18 116/84 96 01/18/20 07:49 37.2 C 99 H 20 141/83 H 97 01/18/20 07:36 114 H 01/18/20 03:19 37.2 C 98 H 18 128/73 93 Laboratory Results Abnormal lab results 01/18/20 01/18/20 Range/Units 06:16 06:16 WBC 1.98 L (4.8-10.8) K/uL RBC 3.21 L (4.2-5.4) M/uL Hgb 10.3 L (12.0-16.0) g/dL Hct 31.8 L (37-47) % RDW Std Deviation 47.8 H (36.4-46.3) fL Chloride 113 H (98-107) mmol/L Calcium 8.3 L (8.5-10.1) mg/dl (1) Sepsis Sepsis acute organ dysfunction status: with acute organ dysfunction Sepsis type: sepsis due to unspecified organism Severe sepsis acute organ dysfunction type: unspecified Severe sepsis shock status: without septic shock Qualified Code(s): A41.9 - Sepsis, unspecified organism; R65.20 - Severe sepsis without septic shock
== END 2020-01-18 15:26 | disposition home or self-care (01) | DRG 872 ==
LOC: ED 08:58 → SUATTDRO 13:13 → 2E 13:13
DX: Z98.42 Cataract extraction status, left eye; C85.10 Unspecified B-cell lymphoma, unspecified site; E83.39 Other disorders of phosphorus metabolism; C82.28 Follicular lymphoma grade III, unspecified, lymph nodes of multiple sites; E83.42 Hypomagnesemia; Y82.8 Other medical devices associated with adverse incidents; Z83.3 Family history of diabetes mellitus; F41.9 Anxiety disorder, unspecified; A41.9 Sepsis, unspecified organism; T82.7XXA Infection and inflammatory reaction due to other cardiac and vascular devices, implants and grafts, initial encounter; Z91.040 Latex allergy status; Z98.41 Cataract extraction status, right eye